=== PATIENT | male | born 1985 | race Caucasian/White ===

== ENCOUNTER 2024-10-12 15:30 | Emergency (ER) | payer OTHER, SELFPAY ==
--- NOTE | ~2024-10-12 | XR_ITS ---
EXAMINATION: XR CHEST CLINICAL INFORMATION: chest pain COMPARISON: None available. TECHNIQUE: 2 views of the chest were obtained. FINDINGS: The cardiac, hilar, and mediastinal contours are normal. The lungs are well inspired and are clear bilaterally. There is no pneumothorax or pleural effusion. There is no focal osseous or soft tissue abnormality. XR/XR chest 2V IMPRESSION: Normal chest. Electronically signed by: Elio Alejandra MD 10/12/2024 04:17 PM EDT
[2024-10-12 15:55] VITALS: BP 153/84; PULSE 69; RESP 18; TEMP 36.5; O2SAT 98; BMI 21.1
--- NOTE | 2024-10-12 15:55 | ED_ITS ---
HPI - SOB/Dyspnea General Chief Complaint: Dyspnea Stated Complaint: SOB; white nodes in throat, burning lungs Time Seen by Provider: 10/12/24 20:20 Source: patient Mode of arrival: ambulatory Limitations: no limitations History of Present Illness ED Provider: Dr. Holley HPI Narrative: 39-year-old male presented hospital today for evaluation of throat lesions. Patient stated he has these lesions were well he noticed that there was veins developing and the lesion has been getting larger he was concerned over throat cancer or lung cancer. Therefore patient is presenting to ER for evaluation. He is also complaining of reflux like symptoms and some shortness of breath. Patient states he is anxious that he may have lung cancer. Related Data Allergies Allergy/AdvReac Type Severity Reaction Status Date / Time No Known Allergies Allergy Verified 10/12/24 15:57 Review of Systems 2 Review of Systems: Pertinent review of systems as mentioned in HPI. All other system otherwise negative. PMFSH Past Medical History PMFSH Narrative: Medical history as mentioned in HPI Social History Social History Advance Directives: No Advance Directives Information Provided: No Physical Exam 2 Exam: Exam: General: Pleasant, no distress, interacting appropriately Head: Normacephalic, atraumatic ENT: Cobblestoning of oral pharynx no exudate, no other lesion on my exam. Cardiovascular: regular rate, regular rhythm, no murmurs, rubbing, gallops Respiratory: CTAB, no wheeze, rales, rhonchi Gastrointestinal: Soft, non distended, non tender, non guarding Psychiatric: Appropriate mood and thoughts Vital Signs: Vital Signs: Last Vital Signs Temp 98.2 F 10/12/24 20:02 Pulse 64 10/12/24 20:02 Resp 18 10/12/24 20:02 BP 148/82 H 10/12/24 20:02 Pulse Ox 99 10/12/24 20:02 O2 Del Method Room Air 10/12/24 20:02 BMI result Body Mass Index 21.1 Course Course Course Narrative: This is an RME: Additional HPI, ROS, PE not included below will be deferred to primary provider. RME assessment and note performed by: Kavita Pillai PA-C This is a [id number]-male, with no known medical problems, who present to the ER with complaints of sore throat with white spots, shortness of breath, and chest burning x several weeks. Oral pharynx widely patent, mild cobblestoning noted.no tonsillar erythema or edema noted. Plan: Labs, EKG, chest xray, further ER eval needed Medical Decision Making Medical Decision Making [facility] Narrative: This is a 39-year-old male presented hospital today for evaluation of her throat lesions. Appears to be cobblestoning and back the oropharynx is bilateral and equal and bilaterally. I do not see any obvious lesions. However patient is concerned about the cobblestoning. We will plan to discharge patient will primary care doctor follow up. I review patient's lab work. Slight elevation of lipase at 200s. However patient does not have any epigastric pain. No abdominal pain on exam. Patient's chest x-ray did not show any signs of lesion or lung nodules. I do not think patient has lung cancer. He does not smoke he does not chew tobacco. I discussed this with the patient. The patient is amenable to establishing care with primary care doctor. Patient will be discharged home. Differential Diagnosis Differential Diagnoses: The differential diagnosis associated with the presentation includes Oropharynx lesion, throat cancer, lung cancer, thrush Lab Data [facility] Lab Attestation statement: I reviewed the patient's lab results. 10/12/24 16:26 10/12/24 16:26 Labs: Lab Results 10/12/24 Range/Units 16:26 WBC 8.1 (4.8-10.8) X10*3/uL RBC 4.66 (4.60-5.80) X10*6/uL Hgb 15.2 (14.0-18.0) g/dl Hct 43.7 (42.0-52.0) % MCV 93.8 (80.0-98.0) fL MCH 32.6 (27.0-33.0) pg MCHC 34.8 (31.0-36.0) g/dl RDW 12.7 (11.0-16.0) % Plt Count 293 (160-400) X10*3/uL MPV 10.7 (9.4-12.4) fL Immature Gran % (Auto) 0.6 H (0.0-0.4) % Neut % (Auto) 63.1 (45-73) % Lymph % (Auto) 27.1 (20-40) % Burnett % (Auto) 8.5 (2-11) % Eos % (Auto) 0.1 (0-4) % Baso % (Auto) 0.6 (0-2) % Lymph # (Auto) 2.2 (1.2-4.9) X10*3/uL Burnett # (Auto) 0.7 (0.1-1.2) X10*3/uL Eos # (Auto) 0.0 (0.0-0.4) X10*3/uL Baso # (Auto) 0.1 (0.0-0.2) X10*3/uL Abs Immat Gran (auto) 0.05 H (0.00-0.03) X10*3/uL Absolute Neuts (auto) 5.1 (2.0-8.3) x10*3/uL Absolute Nucleated RBC 0.000 (0.0-0.012) X10*3/uL Nucleated RBC % (auto) 0.0 (0.0-0.2) /100WBC Sodium 141 (135-145) mmol/L Potassium 3.7 (3.3-5.1) mmol/L Chloride 105 (96-108) mmol/L Carbon Dioxide 26 (22-29) mmol/L Anion Gap 14 (12-20) BUN 11 (9-16) mg/dL Creatinine 0.88 (0.5-1.4) mg/dL Estim Creat Clear Calc 114.5 Estimated GFR > 60 Random Glucose 93 (60-115) mg/dL Calcium 9.5 (8.4-10.2) mg/dL Magnesium 2.2 (1.6-2.6) mg/dL Total Bilirubin 0.7 (0.0-1.0) mg/dL Direct Bilirubin 0.2 (0.0-0.5) mg/dL AST 27 (5-37) U/L ALT 22 (0-40) U/L Alkaline Phosphatase 56 (39-117) U/L Troponin I High Sens < 2.7 (<3.5-35.0) ng/L Total Protein 7.6 (6.5-8.0) g/dL Albumin 5.2 H (3.5-5.0) g/dL Lipase 212 H (8-78) U/L S. pyogenes GrpA RA Negative (Negative) Independent Interpretation I performed an independent interpretation of an: Plain X-Ray Radiology Impression Discussion of test interpretation with radiology: I have reviewed the radiologist's reading. Discharge Plan Discharge Clinical Impression: Encounter for medical screening examination Patient Disposition: Home, Self-Care Additional Instructions: Call the number to establish primary care. It will be important to follow up to keep track of your throat. Perhaps a biopsy may be beneficial. You can call [facility] to see if they can enroll you in state health insurance. Referrals: [facility] [place] [facility] [place] [facility] [Provider Group, Internal Medicine] Print Language: Thai
--- NOTE | 2024-10-12 16:00 | ECG_ITS ---
Test Reason : CP Blood Pressure : */* mmHG Vent. Rate : 66 BPM Atrial Rate : 66 BPM P-R Int : 136 ms QRS Dur : 102 ms QT Int : 424 ms P-R-T Axes : -87 70 68 degrees QTcB Int : 444 ms Artifact in tracing Unusual P axis, possible ectopic atrial rhythm Abnormal ECG No previous ECGs available Referred By: Kavita Pillai Electronically Signed By: DIVYA JHA
[2024-10-12 16:33] LABS: MANUAL DIFF FLAG NO
[2024-10-12 16:37] LABS: Hematocrit 43.7 % (42.0-52.0); Hemoglobin 15.2 g/dl (14.0-18.0); Imm Gran Abs Auto 0.05 X10*3/uL (0.00-0.03); Imm Gran Pct Auto 0.6 % (0.0-0.4); Lymphocytes Absolute Auto 2.2 X10*3/uL (1.2-4.9); Mean Corpuscular HGB Conc 34.8 g/dl (31.0-36.0); Mean Corpuscular Hemoglobin 32.6 pg (27.0-33.0); Mean Corpuscular Volume 93.8 fL (80.0-98.0); NRBC Abs Auto 0.000 X10*3/uL (0.0-0.012); NRBC Pct Auto 0.0 /100WBC (0.0-0.2); Platelet Count 293 X10*3/uL (160-400); Red Blood Count 4.66 X10*6/uL (4.60-5.80); White Blood Count 8.1 X10*3/uL (4.8-10.8)
[2024-10-12 16:41] LABS: IDNOW Serial# 55D5AD1C; Strep A Nucleic Acid Negative (Negative)
[2024-10-12 16:48] LABS: Alanine Aminotransferase 22 U/L (0-40); Albumin Level 5.2 g/dL (3.5-5.0); Alkaline Phosphatase 56 U/L (39-117); Anion Gap 14 (12-20); Aspartate Amino Transferase 27 U/L (5-37); Blood Urea Nitrogen 11 mg/dL (9-16); Calcium 9.5 mg/dL (8.4-10.2); Carbon Dioxide 26 mmol/L (22-29); Chloride 105 mmol/L (96-108); Creatinine Clr Calc Pharmacy 114.5; Estimated Glomerular Filt Rate > 60; Lipase 212 U/L (8-78); Magnesium 2.2 mg/dL (1.6-2.6); Potassium 3.7 mmol/L (3.3-5.1); Sodium 141 mmol/L (135-145); Total Protein 7.6 g/dL (6.5-8.0)
[2024-10-12 16:59] LABS: Troponin-I High Sensitivity < 2.7 ng/L (<3.5-35.0)
[2024-10-12 20:02] VITALS: BP 148/82; PULSE 64; RESP 18; TEMP 36.8; O2SAT 99
[2024-10-12 21:16] VITALS: BP 148/82; PULSE 64; RESP 18; TEMP 36.8; O2SAT 99
== END 2024-10-12 21:16 | disposition home or self-care (01) ==
PROVIDERS: Physician Assistant Medical; Emergency Provider Student in an Organized Health Care Education/Training Program
DX: R06.02 Shortness of breath (principal); K21.9 Gastro-esophageal reflux disease without esophagitis; R07.89 Other chest pain; R07.0 Pain in throat; Z79.899 Other long term (current) drug therapy
CPT/HCPCS: 36415; 71046; 80048; 80076; 83690; 83735; 84484; 85025; 87651; 93005; 99283; 99284

== ENCOUNTER → 2024-10-12 15:59 | Outpatient (BNV) | payer OTHER, MEDICAID, SELFPAY | PROVIDERS: Visit Provider Radiology Diagnostic Radiology | DX: R07.89 Other chest pain (principal) | CPT/HCPCS: 71046 ==

== ENCOUNTER → 2024-10-12 16:00 | Outpatient (BNV) | payer OTHER, SELFPAY | PROVIDERS: Emergency Provider Student in an Organized Health Care Education/Training Program; Visit Provider Internal Medicine | DX: R94.31 Abnormal electrocardiogram [ECG] [EKG] (principal); R07.9 Chest pain, unspecified | CPT/HCPCS: 93010 ==